=== PATIENT | male | born 1995 | race Caucasian/White ===

== ENCOUNTER 2018-06-15 17:31 | Emergency (ER) | payer SELFPAY ==
[~2018-06-15] VITALS: Ht 188 cm; Wt 152.4 kg
[~2018-06-15 17:31] MED LIST: ACET-706 PO
[2018-06-15] MEDS ORDERED: KETOROLAC 60 MG/2 ML VIAL. IM ONE (18:30)
[2018-06-15 19:44] VITALS: BP 147/105
--- NOTE | 2018-06-15 20:43 | RAD ---
4 views right knee HISTORY: Twisted knee one week ago has severe pain AP lateral oblique and sunrise views right knee The visualized osseous structures appear normal. IMPRESSION: No acute findings. Electronically signed by: Orville Griggs III, MD (06/15/2018 8:40 PM) [id number]
--- NOTE | 2018-06-16 08:05 | ED.ADGEN ---
Past History Past Medical History: Other Past Surgical History: Tonsillectomy Smoking: Non-smoker Alcohol Use: Rarely Drug Use: None Adult General Chief Complaint Chief Complaint ".. I was at [facility] two weeks ago when I hurt this Rt., knee... but it has not gotten better.." HPI HPI Patient is a 22 year old male who presents with Rt.Knee injury. Injury occurred while kneeling. Patient can do straight leg lift. Distal neurovascular intact. Does have some pain at distal patella ligament insertion. There is also some pain in collateral ligaments. There is no anterior draw sign. Patient is ambulatory. Patient denies history of fevers, immunosuppression, travel. Her specific ill contacts. Patient normally follows at [facility]. Initial injury happened approximately 2 weeks ago. X-rays at [facility]'s report were negative. She reports some clicking with range of motion. Review of Systems Review of Systems Constitutional: Denies fever or chills [] Eyes: Denies change in visual acuity, redness, or eye pain [] HENT: Denies nasal congestion or sore throat [] Respiratory: Denies cough or shortness of breath [] Cardiovascular: No additional information not addressed in HPI [] GI: Denies abdominal pain, nausea, vomiting, bloody stools or diarrhea [] : Denies dysuria or hematuria [] Musculoskeletal: Denies back pain or joint pain complains of right knee pain Integument: Denies rash or skin lesions [] Neurologic: Denies headache, focal weakness or sensory changes [] Endocrine: Denies polyuria or polydipsia [] All other systems were reviewed and found to be within normal limits, except as documented in this note. Family History Family History Noncontributory Current Medications Current Medications Current Medications Medications (Trade) Dose Ordered Sig/Mikey Start Time Stop Time Status Last Admin Dose Admin Ketorolac Tromethamine (Toradol Im) 60 mg 1X ONCE 06/15/18 18:30 06/15/18 18:31 DC 06/15/18 18:36 60 MG Allergies Allergies Allergies Coded Allergies Type Severity Reaction Last Updated Verified risperidone Allergy Unknown 06/12/13 Yes Physical Exam Physical Exam Constitutional: Moderately acute distress, non-toxic appearance. [] HENT: Normocephalic, atraumatic, bilateral external ears normal, oropharynx moist, no oral exudates, nose normal. [] Eyes: PERRLA, EOMI, conjunctiva normal, no discharge. [] Neck: Normal range of motion, no tenderness, supple, no stridor. [] Cardiovascular:Heart rate regular rhythm, no murmur [] Lungs & Thorax: Bilateral breath sounds clear to auscultation [] Abdomen: Bowel sounds normal, soft, no tenderness, no masses, no pulsatile masses. []Morbidly obese. Skin: Warm, dry, no erythema, no rash. [] Back: No tenderness, no CVA tenderness. [] Extremities: No tenderness, no cyanosis, no clubbing, ROM intact, no edema. [] Except findings in right knee as per history of present illness Neurologic: Alert and oriented X 3, normal motor function, normal sensory function, no focal deficits noted. [] Psychologic: Anxious, judgement normal, mood normal. [] Current Patient Data Vital Signs Vital Signs Date Time Temp Pulse Resp B/P (MAP) Pulse Ox O2 Delivery O2 Flow Rate FiO2 06/15/18 19:44 98.0 85 20 147/105 (119) 98 Room Air EKG EKG [] Radiology/Procedures Radiology/Procedures I interpretation of x-ray shows no obvious fracture dislocation.[] Course & Med Decision Making Course & Med Decision Making Pertinent Labs and Imaging studies reviewed. (See chart for details). Patient follow-up primary care. Patient follow-up orthopedics. Patient use ice packs as needed. Patient take Tylenol and ibuprofen for pain. Patient wear Ladarius wrap. Return of any concerns. [] Final Impression Final Impression 1. Knee sprain strain [] Dragon Disclaimer Dragon Disclaimer This electronic medical record was generated, in whole or in part, using a voice recognition dictation system. Discharge Summary Visit Information Final Diagnosis Problems Medical Problems: (1) Knee clicking Status: Acute (2) Sprain and strain Status: Acute Brief Hospital Course Allergies Allergies Coded Allergies Type Severity Reaction Last Updated Verified risperidone Allergy Unknown 06/12/13 Yes Vital Signs Vital Signs Date Time Temp Pulse Resp B/P (MAP) Pulse Ox O2 Delivery O2 Flow Rate FiO2 06/15/18 19:44 98.0 85 20 147/105 (119) 98 Room Air Brief Hospital Course Mr. Miles is a 22 old male who presented with Rt. knee injury two weeks ago. Discharge Information Condition at Discharge: Stable Disposition/Orders: D/C to Home Dischare Medications Current Medications Ketorolac Tromethamine (Toradol Im) 60 mg 1X ONCE IM Last administered on 06/15at 18:36; Admin Dose 60 MG; Start 06/15/18 at 18:30; Stop 06/15/18 at 18:31; Status DC Active Scripts Active Tylenol With Codeine #4 Tablet (Acetaminophen With Codeine) 1 Each Tablet 1 Each PO Q4-6HRS PRN Reported No Known Medications Prior To Admisstion (Info) Each 1 Each Dragon Disclaimer This chart was dictated in whole or in part using Voice Recognition software in a busy, high-work load, and often noisy Emergency Department environment. It may contain unintended and wholly unrecognized errors or omissions. MARNI EDWARDS MD Jun 16, 2018 08:05
== END 2018-06-15 19:44 | disposition home or self-care (01) ==
LOC: ER 17:31
DX: S83.91XA Sprain of unspecified site of right knee, initial encounter (principal); Z88.8 Allergy status to other drugs, medicaments and biological substances; X50.9XXA Other and unspecified overexertion or strenuous movements or postures, initial encounter; Y93.89 Activity, other specified; Y92.89 Other specified places as the place of occurrence of the external cause; Y99.8 Other external cause status
CPT/HCPCS: 73564; 96372; 99284; J1885